=== PATIENT | female | born 1955 | race African-American/Black ===

== ENCOUNTER 2019-09-09 22:28 | Inpatient (IN) | payer BC ==
[~2019-09-09] VITALS: Ht 170.2 cm; Wt 87.5 kg
[~2019-09-09 22:28] MED LIST: ESCI10TA61 PO; HEPARIN SQ; LEVE500T19 PO; POTA10TA15 PO; RISP1TAB26 PO
[2019-09-09] MEDS ORDERED: SODIUM CHLORIDE 0.9% 1,000 ML IV ONE (22:34)
[2019-09-09 23:22] LABS: HEMATOCRIT. 41.1 % (36.0-48.0); HEMOGLOBIN. 14.3 g/dL (12.0-16.0); MEAN CORPUSCULAR HEMOGLOBIN 33.9 pg (28.0-32.0); MEAN CORPUSCULAR VOLUME 97.1 fL (81.0-99.0); MEAN PLATELET VOLUME 7.4 fl (7.4-10.4); PLATELET 211 x1000/uL (130-400); RED BLOOD CELL COUNT 4.23 mill/uL (4.2-5.4)
[2019-09-09 23:29] LABS: CHLORIDE 106 mEq/L (98-107)
[2019-09-09 23:33] LABS: ETHANOL BLOOD < 10 mg/dL
[2019-09-10 00:04] LABS: PLATELET ESTIMATE NORMAL
[2019-09-10 00:28] LABS: CREATINE KINASE 631 IU/L (26-192)
[2019-09-10 00:30] LABS: CLARITY URINE CLEAR (CLEAR); COLOR URINE DARK YELLOW (YELLOW); KETONES URINE 1+ (NEGATIVE); LEUKOCYTE ESTERASE URINE TRACE (NEGATIVE); NITRITE URINE NEGATIVE (NEGATIVE); OCCULT BLOOD URINE NEGATIVE (NEGATIVE); PROTEIN URINE TRACE (NEGATIVE); SPECIFIC GRAVITY URINE 1.029 (1.005-1.030)
[2019-09-10 00:39] LABS: *AMPHETAMINES SCREEN URINE NEGATIVE (NEGATIVE)
[2019-09-10 00:40] LABS: *BARBITURATES SCREEN URINE NEGATIVE (NEGATIVE); *BENZODIAZEPINES SCREEN URINE NEGATIVE (NEGATIVE); *COCAINE SCREEN URINE NEGATIVE (NEGATIVE); METHADONE URINE SCREEN NEGATIVE (NEGATIVE); OPIATES URINE SCREEN NEGATIVE (NEGATIVE); PHENCYCLIDINE URINE SCREEN NEGATIVE (NEGATIVE)
[2019-09-10 00:43] LABS: CANNABINOID URINE SCREEN PRESUMTIVE POSITIVE (NEGATIVE)
[2019-09-10] MEDS ORDERED: CLONIDINE 0.2MG TABLET PO ONE (01:15)
[2019-09-10 02:26] LABS: PARTIAL THROMBOPLASTIN TIME 26.4 sec (23.4-31.0); PROTHROMBIN TIME 10.7 sec (9.6-11.0)
[2019-09-10 12:00] VITALS: BP 137/54
[2019-09-10] MEDS ORDERED: PANTOPRAZOLE SODIUM 40 MG/VIAL IV SCH (12:30)
[2019-09-10] MEDS ORDERED: ONDANSETRON HCL 4MG/2ML INJ IV PRN (12:30)
[2019-09-10] MEDS ORDERED: ENOXAPARIN 30MG/0.3ML SYR SUBCUT SCH (13:30)
[2019-09-10] MEDS ORDERED: HYDRALAZINE 20MG/ML VIAL IV PRN (14:45)
[2019-09-10] MEDS ORDERED: BISACODYL 10MG SUPP PR PRN (14:45)
[2019-09-10] MEDS ORDERED: LACTULOSE 20G/30ML UDC PO PRN (14:45)
[2019-09-10] MEDS ORDERED: ACETAMINOPHEN 325MG TABLET PO PRN (14:45)
[2019-09-10] MEDS ORDERED: IPRATROPIUM/ALBUTEROL 0.5-3(2.5)MG/3ML NEB HHN PRN (14:45)
[2019-09-10] MEDS ORDERED: CLONIDINE 0.1MG TABLET PO PRN (14:45)
[2019-09-10] MEDS ORDERED: ACETAMINOPHEN 650MG SUPP PR PRN (14:45)
[2019-09-10] MEDS ORDERED: HYDRALAZINE 10 MG in SODIUM CHLORIDE 0.9% 49.5 ML IV PRN (15:00)
[2019-09-10 15:54] VITALS: BP 126/74
[2019-09-10 16:00] VITALS: BP 144/74
[2019-09-10 17:01] LABS: BASOPHILS % 0.5 % (0.0-2.0); EOSINOPHILS % 0.1 % (0.0-5.0); HEMOGLOBIN. 13.3 g/dL (12.0-16.0); LYMPHOCYTES % 21.3 % (20.0-50.0); MEAN CORPUSCULAR HEMOGLOBIN 33.8 pg (28.0-32.0); MEAN CORPUSCULAR VOLUME 96.6 fL (81.0-99.0); MEAN PLATELET VOLUME 7.2 fl (7.4-10.4); MONOCYTES % 6.5 % (2.0-8.0); NEUTROPHILS % 71.6 % (40.0-76.0); PLATELET 184 x1000/uL (130-400); RED BLOOD CELL COUNT 3.93 mill/uL (4.2-5.4)
[2019-09-10 17:07] LABS: CHLORIDE 110 mEq/L (98-107)
[2019-09-10 17:15] LABS: CREATINE KINASE 485 IU/L (26-192)
[2019-09-10 17:17] LABS: CREATINE KINASE MB FRACTION 1.7 ng/mL (0.5-3.6)
[2019-09-10 20:00] VITALS: BP 122/69
[2019-09-10] MEDS: LEVETIRACETAM 500MG PREMIX 100 ML IV SCH (20:52)
[2019-09-10] MEDS: DEXT 5%/0.45% NACL 1000ML 1,000 ML IV SCH (20:53)
[2019-09-10] MEDS: MORPHINE SULFATE 2 MG/ML CPJ (NOT FOR IM USE) IV PRN (20:54)
[2019-09-11] VITALS (7 sets, daily range): BP systolic 107–122; BP diastolic 50–65
[2019-09-11] MEDS: DEXT 5%/0.45% NACL 1000ML 1,000 ML IV SCH (01:50)
[2019-09-11] MEDS ORDERED: LEVE750T10 (06:35)
[2019-09-11] MEDS ORDERED: ATOR20TA65 (06:35)
[2019-09-11] MEDS ORDERED: XAR15 (06:35)
[2019-09-11] MEDS ORDERED: PHEN100C12 (06:35)
[2019-09-11] MEDS ORDERED: RISP3TAB13 (06:35)
[2019-09-11] MEDS ORDERED: ESCI20TA43 (06:35)
[2019-09-11] MEDS ORDERED: GABA-531 (06:35)
[2019-09-11] MEDS: LEVETIRACETAM 500MG PREMIX 100 ML IV SCH ×2 (08:36→09:00)
[2019-09-11] MEDS: MORPHINE SULFATE 2 MG/ML CPJ (NOT FOR IM USE) IV PRN (08:39)
[2019-09-11] MEDS ORDERED: ENOXAPARIN 40MG/0.4ML SYR SUBCUT SCH (09:00)
[2019-09-11 09:37] LABS: BASOPHILS % 0.4 % (0.0-2.0); EOSINOPHILS % 0.7 % (0.0-5.0); HEMATOCRIT. 35.2 % (36.0-48.0); HEMOGLOBIN. 12.4 g/dL (12.0-16.0); LYMPHOCYTES % 31.6 % (20.0-50.0); MEAN CORPUSCULAR VOLUME 96.4 fL (81.0-99.0); MEAN PLATELET VOLUME 7.4 fl (7.4-10.4); MONOCYTES % 8.5 % (2.0-8.0); NEUTROPHILS % 58.8 % (40.0-76.0); PLATELET 183 x1000/uL (130-400); RED BLOOD CELL COUNT 3.65 mill/uL (4.2-5.4); RED CELL DISTRIBUTION WIDTH 12.9 % (11.6-14.6)
[2019-09-11 10:06] LABS: CHLORIDE 108 mEq/L (98-107)
[2019-09-11] MEDS ORDERED: FUROSEMIDE 40MG/4ML VIAL IVP SCH (12:00)
[2019-09-11] MEDS ORDERED: POTASSIUM CHLORIDE 20MEQ TABLET SR PO SCH (12:00)
[2019-09-11] MEDS: HYDROCODONE/ACETAMINOPHEN 5/325MG TABLET PO PRN ×2 (12:31→20:21)
[2019-09-11] MEDS: LEVETIRACETAM 500MG TABLET PO SCH ×2 (12:31→20:21)
[2019-09-11] MEDS ORDERED: FUROSEMIDE 40MG TABLET PO SCH (21:00)
== END 2019-09-11 22:05 | DRG 562 ==
LOC: ER 22:28 → 6EST 09-10 02:23 → ENRESERV 09-10 12:37 → CANRESERV 09-10 12:37 → EDBEDREQSVC 09-10 12:49 → ENRESERV 09-10 13:13
PROVIDERS: ADMIT Internal Medicine Nephrology; ATTEND Internal Medicine Nephrology
DX: S42.214A Unspecified nondisplaced fracture of surgical neck of right humerus, initial encounter for closed fracture (principal); S72.011A Unspecified intracapsular fracture of right femur, initial encounter for closed fracture; G93.40 Encephalopathy, unspecified; I69.351 Hemiplegia and hemiparesis following cerebral infarction affecting right dominant side; I42.9 Cardiomyopathy, unspecified; M62.82 Rhabdomyolysis; I50.42 Chronic combined systolic (congestive) and diastolic (congestive) heart failure; D72.810 Lymphocytopenia; R74.8 Abnormal levels of other serum enzymes; G40.909 Epilepsy, unspecified, not intractable, without status epilepticus; R26.89 Other abnormalities of gait and mobility; E66.9 Obesity, unspecified; E78.5 Hyperlipidemia, unspecified; E87.6 Hypokalemia; W18.39XA Other fall on same level, initial encounter; I11.0 Hypertensive heart disease with heart failure; Z79.899 Other long term (current) drug therapy; Z86.718 Personal history of other venous thrombosis and embolism; Z68.30 Body mass index [BMI] 30.0-30.9, adult; Z79.1 Long term (current) use of non-steroidal anti-inflammatories (NSAID); Z87.891 Personal history of nicotine dependence; Y93.89 Activity, other specified; Y99.8 Other external cause status; Y92.002 Bathroom of unspecified non-institutional (private) residence as the place of occurrence of the external cause
CPT/HCPCS: 36415; 70551; 71045; 72192; 73030; 73080; 73502; 73560; 73562; 80048; 80053; 80305; 80320; 81003; 82140; 82542; 82550; 82553; 83880; 84145; 84484; 85025; 86850; 86900; 93005; 93306; 93970; 99285; A4565; C9113; J1650; J1953; J2270; J7030; G0480

== ENCOUNTER 2023-03-02 07:28 | Inpatient (IN) | payer OTHER, BC, MEDICARE ==
[~2023-03-02] VITALS: Ht 170.2 cm; Wt 107.5 kg
[~2023-03-02 07:28] MED LIST changes: +ATOR20TA65; +ESCI-7 PO; -ESCI10TA61 PO; +ESCI20TA37; +GABA-532; +LEVE750T10; +PHEN100C12; -RISP1TAB26 PO; +RISP1TAB97 PO; +RISP3TAB62; +XAR15
[2023-03-02] MEDS ORDERED: PANTOPRAZOLE SODIUM 40 MG/VIAL IV STA (07:37)
[2023-03-02] MEDS ORDERED: SODIUM CHLORIDE 0.9% 1,000 ML IV ONE (07:45)
[2023-03-02 08:00] LABS: CHLORIDE 101 mEq/L (98-107); INDEX HEMOLYSI 1 (1-3); INDEX ICTERIC 1 (1-4); INDEX LIPEMIC 1 (1-3); POTASSIUM 3.1 mEq/L (3.5-5.1); SODIUM 140 mEq/L (136-145)
[2023-03-02 08:03] LABS: BASOPHILS % 0.7 % (0.0-2.0); EOSINOPHILS % 0.9 % (0.0-5.0); HEMATOCRIT. 42.5 % (36.0-48.0); HEMOGLOBIN. 14.5 g/dL (12.0-16.0); LYMPHOCYTES % 34.3 % (20.0-50.0); MEAN CORPUSCULAR HEMOGLOBIN 33.3 pg (28.0-32.0); MEAN CORPUSCULAR HGB CONC 34.2 g/dL (31.0-37.0); MEAN CORPUSCULAR VOLUME 97.3 fL (81.0-99.0); MEAN PLATELET VOLUME 7.6 fl (7.4-10.4); MONOCYTES % 4.7 % (2.0-8.0); NEUTROPHILS % 59.4 % (40.0-76.0); PLATELET 201 x1000/uL (130-400); RED BLOOD CELL COUNT 4.36 mill/uL (4.2-5.4); RED CELL DISTRIBUTION WIDTH 12.5 % (11.6-14.6); WHITE BLOOD COUNT 5.6 x1000/uL (4.5-11.0)
[2023-03-02 08:08] LABS: ALANINE AMINOTRANSFERASE 12 IU/L (13-61); ALBUMIN 3.1 g/dL (3.4-5.0); ASPARTATE AMINOTRANSFERASE 13 IU/L (15-37); BILIRUBIN TOTAL 0.5 mg/dL (0.1-1.0); CALCIUM 8.6 mg/dL (8.5-10.1); CARBON DIOXIDE 37 mEq/L (21-32); CREATININE 0.7 mg/dL (0.6-1.3); GLUCOSE 121 mg/dL (70-105); PROTEIN TOTAL 7.8 g/dL (6.0-8.3); TROPONIN I HIGH SENSITIVITY 6 ng/L (<54); UREA NITROGEN BLOOD 10 mg/dL (7-21)
[2023-03-02 08:19] LABS: PROTHROMBIN TIME 11.2 sec (9.6-11.0)
[2023-03-02] MEDS ORDERED: POTASSIUM CHLORIDE 20MEQ TABLET SR PO ONE (09:30)
[2023-03-02 10:14] LABS: CLARITY URINE CLOUDY (CLEAR); COLOR URINE BLOODY (YELLOW); PH URINE 6.5 (4.5-8.0)
[2023-03-02 10:15] LABS: GLUCOSE URINE NEGATIVE (NEGATIVE); KETONES URINE TRACE (NEGATIVE); PROTEIN URINE 3+ (NEGATIVE)
[2023-03-02 10:16] LABS: LEUKOCYTE ESTERASE URINE TRACE (NEGATIVE); NITRITE URINE POSITIVE (NEGATIVE); OCCULT BLOOD URINE 3+ (NEGATIVE)
[2023-03-02 10:20] LABS: BACTERIA URINE 4+; RBC URINE TNTC /hpf (0-2)
[2023-03-02 10:21] LABS: SQUAMOUS EPITHELIAL CELL URINE RARE /lpf (RARE/1+); WBC URINE 15-25 /hpf (0-2)
[2023-03-02] MEDS ORDERED: POTASSIUM CHLORIDE 20MEQ TABLET SR PO NR (11:30)
[2023-03-02] MEDS ORDERED: CEFTRIAXONE 1GM PREMIX 50 ML IV ONE (12:30)
[2023-03-02] MEDS ORDERED: IOHEXOL-300 100 ML BOTTLE ONE (14:21)
[2023-03-02 14:50] VITALS: BP 134/70; PULSE 61; RESP 16; TEMP 97
[2023-03-02 15:00] VITALS: BP 134/70; PULSE 61; RESP 16; TEMP 97
[2023-03-02 16:00] VITALS: BP 134/70; PULSE 61; RESP 16; TEMP 97
[2023-03-02] MEDS ORDERED: ACETAMINOPHEN 325MG TABLET PO PRN (16:15)
[2023-03-02] MEDS ORDERED: ONDANSETRON HCL 4MG/2ML INJ IV PRN (16:15)
[2023-03-02] MEDS: DEXT 5%/0.45% NACL 1000ML 1,000 ML IV SCH (16:30)
[2023-03-02 20:00] VITALS: BP 137/72; PULSE 63; RESP 18; TEMP 97.5
[2023-03-02] MEDS: LEVETIRACETAM 500MG TABLET PO SCH (20:07)
[2023-03-02] MEDS ORDERED: CHOL2000 (20:15)
[2023-03-02] MEDS ORDERED: FURO40TA5 MT (20:15)
[2023-03-02] MEDS ORDERED: CEFTRIAXONE 1GM PREMIX 50 ML IV SCH (22:00)
[2023-03-03] VITALS: BP 139/67; PULSE 65; RESP 18; TEMP 97.5
[2023-03-03 00:41] LABS: INDEX HEMOLYSI 1 (1-3)
[2023-03-03 00:49] LABS: CREATINE KINASE 65 IU/L (26-192); CREATINE KINASE MB FRACTION < 1.0 ng/mL (0.5-3.6); TROPONIN I HIGH SENSITIVITY 6 ng/L (<54)
[2023-03-03 03:42] VITALS: BP 149/57; PULSE 67; RESP 15; TEMP 97.9
[2023-03-03] MEDS: DEXT 5%/0.45% NACL 1000ML 1,000 ML IV SCH ×2 (06:03→18:55)
[2023-03-03 07:19] LABS: INDEX HEMOLYSI 1 (1-3)
[2023-03-03 07:27] LABS: CREATINE KINASE 60 IU/L (26-192); CREATINE KINASE MB FRACTION < 1.0 ng/mL (0.5-3.6); TROPONIN I HIGH SENSITIVITY 6 ng/L (<54)
[2023-03-03 08:00] VITALS: BP 156/47; PULSE 71; RESP 20; TEMP 97.5
[2023-03-03] MEDS: LEVETIRACETAM 500MG TABLET PO SCH ×2 (09:21→20:44)
[2023-03-03 11:44] LABS: BASOPHILS % 0.3 % (0.0-2.0); EOSINOPHILS % 0.8 % (0.0-5.0); HEMATOCRIT. 40.6 % (36.0-48.0); HEMOGLOBIN. 13.9 g/dL (12.0-16.0); LYMPHOCYTES % 46.7 % (20.0-50.0); MEAN CORPUSCULAR HEMOGLOBIN 33.2 pg (28.0-32.0); MEAN CORPUSCULAR HGB CONC 34.2 g/dL (31.0-37.0); MEAN CORPUSCULAR VOLUME 97.1 fL (81.0-99.0); MEAN PLATELET VOLUME 7.9 fl (7.4-10.4); NEUTROPHILS % 45.2 % (40.0-76.0); PLATELET 209 x1000/uL (130-400); RED BLOOD CELL COUNT 4.18 mill/uL (4.2-5.4); RED CELL DISTRIBUTION WIDTH 12.6 % (11.6-14.6); WHITE BLOOD COUNT 4.3 x1000/uL (4.5-11.0)
[2023-03-03 12:00] VITALS: BP 131/56; PULSE 60; RESP 20; TEMP 94.1
[2023-03-03 12:27] LABS: CHLORIDE 103 mEq/L (98-107); INDEX HEMOLYSI 1 (1-3); INDEX ICTERIC 1 (1-4); INDEX LIPEMIC 1 (1-3); POTASSIUM 3.7 mEq/L (3.5-5.1); SODIUM 138 mEq/L (136-145)
[2023-03-03 12:38] LABS: CALCIUM 8.5 mg/dL (8.5-10.1); CARBON DIOXIDE 32 mEq/L (21-32); CREATININE 0.5 mg/dL (0.6-1.3); GLUCOSE 86 mg/dL (70-105); IRON 58 ug/dL (50-175); TOTAL IRON BINDING CAPACITY 368 ug/dL (250-450); UREA NITROGEN BLOOD 4 mg/dL (7-21)
[2023-03-03 13:03] LABS: FOLIC ACID (FOLATE) SERUM 14.6 ng/mL (>5.38)
[2023-03-03] MEDS: CEFTRIAXONE 1,000 MG in DEXTROSE 5% WATER 50 ML IV SCH (14:20)
[2023-03-03 20:00] VITALS: BP 149/71; PULSE 67; RESP 18; TEMP 97.1
[2023-03-04] VITALS (7 sets, daily range): BP systolic 124–152; BP diastolic 10–84; PULSE 64–77; RESP 16–20; TEMP 97.1–99; O2SAT 96
[2023-03-04 06:17] LABS: BASOPHILS % 0.4 % (0.0-2.0); EOSINOPHILS % 0.4 % (0.0-5.0); HEMATOCRIT. 39.8 % (36.0-48.0); HEMOGLOBIN. 13.6 g/dL (12.0-16.0); LYMPHOCYTES % 29.3 % (20.0-50.0); MEAN CORPUSCULAR HEMOGLOBIN 33.1 pg (28.0-32.0); MEAN CORPUSCULAR HGB CONC 34.2 g/dL (31.0-37.0); MEAN CORPUSCULAR VOLUME 96.8 fL (81.0-99.0); MEAN PLATELET VOLUME 7.5 fl (7.4-10.4); MONOCYTES % 8.2 % (2.0-8.0); NEUTROPHILS % 61.7 % (40.0-76.0); PLATELET 198 x1000/uL (130-400); RED BLOOD CELL COUNT 4.11 mill/uL (4.2-5.4); RED CELL DISTRIBUTION WIDTH 12.7 % (11.6-14.6)
[2023-03-04 06:27] LABS: CHLORIDE 105 mEq/L (98-107); INDEX HEMOLYSI 1 (1-3); INDEX ICTERIC 1 (1-4); INDEX LIPEMIC 1 (1-3); POTASSIUM 3.7 mEq/L (3.5-5.1); SODIUM 139 mEq/L (136-145)
[2023-03-04 06:43] LABS: ALANINE AMINOTRANSFERASE 13 IU/L (13-61); ASPARTATE AMINOTRANSFERASE 13 IU/L (15-37); BILIRUBIN DIRECT 0.1 mg/dL (0.0-0.2); BILIRUBIN TOTAL 0.6 mg/dL (0.1-1.0); CALCIUM 8.8 mg/dL (8.5-10.1); CARBON DIOXIDE 30 mEq/L (21-32); CREATININE 0.6 mg/dL (0.6-1.3); GLUCOSE 90 mg/dL (70-105); PROTEIN TOTAL 7.2 g/dL (6.0-8.3); UREA NITROGEN BLOOD 4 mg/dL (7-21)
[2023-03-04] MEDS: DEXT 5%/0.45% NACL 1000ML 1,000 ML IV SCH (07:41)
[2023-03-04] MEDS: LEVETIRACETAM 500MG TABLET PO SCH ×2 (08:42→22:54)
[2023-03-04] MEDS: CEFTRIAXONE 1,000 MG in DEXTROSE 5% WATER 50 ML IV SCH (12:00)
[2023-03-04] MEDS ORDERED: RIVAROXABAN 15 MG TABLET PO SCH (13:15)
== END 2023-03-05 01:05 | disposition home or self-care (01) | DRG 392 ==
LOC: ER 07:28 → 8WST 13:56 → EDBEDREQ 13:59 → EDBEDREQTM 13:59
PROVIDERS: ADMIT Internal Medicine; ATTEND Internal Medicine
DX: K57.30 Diverticulosis of large intestine without perforation or abscess without bleeding (principal); N39.0 Urinary tract infection, site not specified; I69.351 Hemiplegia and hemiparesis following cerebral infarction affecting right dominant side; I11.0 Hypertensive heart disease with heart failure; I50.9 Heart failure, unspecified; Z79.01 Long term (current) use of anticoagulants; Z87.891 Personal history of nicotine dependence; Z79.899 Other long term (current) drug therapy
CPT/HCPCS: 36415; 71045; 74177; 80048; 80053; 80076; 81003; 82270; 82550; 82553; 82607; 82728; 82746; 83540; 83550; 84484; 85025; 85044; 87077; 87186; 87493; 89055; 93005; 99285; C9113; J0696; J7030; J7060; Q9967